=== PATIENT | male | born 1970 | race Caucasian/White ===

== ENCOUNTER 2020-08-08 05:14 | Emergency (ER) | payer OTHER, SELFPAY ==
[2020-08-08] VITALS (7 sets, daily range): BP systolic 147–174; BP diastolic 94–111; PULSE 69–102; RESP 18–24; TEMP 36.8–36.9; O2SAT 93–98; BMI 38.0
--- NOTE | 2020-08-08 05:15 | XR_ITS ---
WS: [id number] Portable AP upright chest, 08/08/2020 Clinical Data: covid Comparison: None. Findings: There are bilateral opacities in the mid portions of both lungs. The heart size is normal. No nodules, masses or effusions are seen. No pneumothorax is seen. The pulmonary vascularity is not i ncreased. XR/XR chest 1V portable [id number] Impression: Bilateral patchy opacities consistent with pneumonia.
--- NOTE | 2020-08-08 05:26 | W.ED.SOB ---
Documented by User: Kt Clement MD 08/08/20 05:43 HPI - SOB/Dyspnea General: Chief Complaint: Shortness of Breath/Dyspnea Stated Complaint: sob Time Seen by Provider: 08/08/20 05:26 Source: patient and EMS Mode of arrival: EMS Limitations: no limitations History of Present Illness: HPI Narrative: 50-year-old male came in by EMS for shortness of breath. He states he has been having cough fever for the last 10 days and did test positive for COVID-19 7 days ago. He states he been feeling well until overnight. He states his pulse ox at home was reading 78 at one time and EMS states when they arrived he was 8586% on room air and they placed him on 4 L. He is currently 94% on 4 L. He has had a cough and states he has difficulty getting deep breaths in. He has had overall body pain and low-grade fevers. Denies any worsening improving factors. Associated symptoms: Reports fever(s); Deny abdominal pain, chest pain, nausea or vomiting Review of Systems Const: Reports: fever(s) and body aches; Denies: chills or change in appetite Eyes: Denies: blurry vision or eye discomfort ENMT: Denies: throat pain or dental pain Card: Denies: chest pain Resp: Reports: dyspnea and non-productive cough GI: Denies: abdominal pain, nausea, vomiting or diarrhea : Denies: dysuria Musc: Denies: neck pain or back pain Skin/Breast: Denies: rash Neuro: Denies: headache(s) Psych: Denies: depression Raj/Lymph: Denies: easy bruising All/Imm: Denies: urticaria Physical Exam Const: COMMON NORMALS: no acute distress, patient oriented x3 and healthy appearing HENMT: COMMON NORMALS: normocephalic and atraumatic HEAD & SCALP: normocephalic and atraumatic Eye: COMMON NORMALS: Equal, round and reactive pupils present and EOMs intact bilaterally PUPIL: Yes Equal, round and reactive pupils present Neck/C-Spine: COMMON NORMALS: full ROM and supple Chest: COMMONS NORMALS: normal inspection of the chest and normal palpation of entire chest wall Resp: COMMON NORMALS: normal respiratory effort, No retractions, No use of accessory muscles and clear to auscultation bilaterally AUSCULTATION: clear to auscultation bilaterally Cardio: COMMON NORMALS: regular rate, regular rhythm and No murmurs present (Cardio) RATE: regular rate RHYTHM: regular rhythm GI: COMMON NORMALS: Normal to inspection, nondistended, normoactive bowel sounds present, Soft to palpation, non-tender and no masses PALPATION: Yes Soft to palpation Extremity: COMMON NORMALS: normal to inspection and full ROM Neuro: COMMON NORMALS: patient oriented x3, moves all extremities and no focal motor deficits Psych: COMMON NORMALS: mental status grossly normal, Normal thought process present and cooperative THOUGHT PROCESS: Normal thought process present Skin: COMMON NORMALS: no rashes or lesions noted and no wounds GENERAL SKIN EXAM: no rashes or lesions noted Course Vital Signs: Vital signs: Vital Signs Temperature 98.4 F 08/08/20 15:37 Pulse Rate 101 H 08/08/20 15:37 Respiratory Rate 18 08/08/20 15:37 Blood Pressure 155/101 08/08/20 15:37 Pulse Oximetry 96 08/08/20 15:37 MDM - SOB/Dyspnea Lab Data: Labs: Lab Results 08/08/20 08/08/20 08/08/20 Range/Units 05:25 05:40 05:40 WBC 26.3 H (4.0-10.0) 10^3/ uL RBC 5.63 H (4.1-5.3) 10^6/u L Hgb 16.6 (11.7-16.6) g/dL Hct 48.6 (42.0-52.0) % MCV 86.3 (80-94) fL MCH 29.5 (28.0-34.0) pg MCHC 34.2 (30.0-36.0) g/dL RDW 11.6 L (12.1-15.1) % Plt Count 312 (130-400) 10^3/c mm MPV 11.7 H (7.4-10.4) fL Lymph % (Auto) Not Reportable Garland % (Auto) Not Reportable Lymph # (Auto) Not Reportable [place] # (Auto) Not Reportable Total Counted 100 (0-100) Atypical Lymphs % 0.0 (0-5) % Absolute Neutrophi ls 23.9 H (1.4-6.5) 10^3/c mm Segmented Neutroph ils 80 % Abs Segm Neuts (Ma n) 21.0 H (1.6-7.1) 10/cmm Band Neutrophils 11.0 % Abs Band Neuts (Ma n) 2.9 H (0.0-1.2) 10^3/c mm Lymphocytes (Manua l) 4 % Monocytes (Manual) 2.0 % Absolute Monocytes 0.5 (0.1-0.6) 10^3/c mm Eosinophils (Manua l) 0 % Absolute Eosinophi ls 0.0 (0.0-0.7) 10^3/c mm Basophils (Manual) 0.0 % Absolute Basophils 0.0 (0.0-0.2) 10^3/c mm Metamyelocytes 2.0 % Myelocytes 1.0 % Platelet Estimate Normal (Normal) Fibrinogen 599 H (174-498) mg/dL D-Dimer <= 0.27 (0-0.59) ug/mIFE U Specimen Type Arterial Sample Site Radial, left ABG pH 7.46 H (7.35-7.45) ABG pCO2 31.1 L (35-45) mmHg ABG pO2 70.9 L (80.0-100.0) mmH g ABG HCO3 22.2 (22-26) mmol/L ABG Base Excess -0.5 (-2.0-2.0) mmol/ L Johnny Test Pos Hematocrit 52.1 H (42-52) % O2 Delivery Device Nc O2 Liters/Min 4.0 % [employer] Harkr Sodium (136-145) mmol/L Potassium (3.5-5.1) mmol/L Chloride (98-107) mmol/L Carbon Dioxide (22-29) mmol/L Anion Gap (5-19) BUN (6-20) mg/dL Creatinine (0.7-1.2) mg/dL GFR Calculation (90-130) mL/min Glucose (65-115) mg/dL Calculated Osmolal ity (285-295) mOsm/k g Lactic Acid (0.5-2.2) mmol/L Lactic Acid (Sepsi s) (0.5-2.2) mmol/L Calcium (8.5-10.5) mg/dL Ferritin (30-400) ng/mL Total Bilirubin (0.15-1.2) mg/dL AST (0-40) U/L ALT (0-41) U/L Alkaline Phosphata se (40-130) IU/L Lactate Dehydrogen ase (135-225) U/L C-Reactive Protein (0.0-4.9) mg/L Total Protein (6.6-8.7) g/dL Albumin (3.5-5.2) g/dL Globulin (1.3-4.6) g/dL 08/08/20 08/08/20 08/08/20 Range/Units 05:40 05:40 05:40 WBC (4.0-10.0) 10^3/ uL RBC (4.1-5.3) 10^6/u L Hgb (11.7-16.6) g/dL Hct (42.0-52.0) % MCV (80-94) fL MCH (28.0-34.0) pg MCHC (30.0-36.0) g/dL RDW (12.1-15.1) % Plt Count (130-400) 10^3/c mm MPV (7.4-10.4) fL Lymph % (Auto) Garland % (Auto) Lymph # (Auto) [place] # (Auto) Total Counted (0-100) Atypical Lymphs % (0-5) % Absolute Neutrophi ls (1.4-6.5) 10^3/c mm Segmented Neutroph ils % Abs Segm Neuts (Ma n) (1.6-7.1) 10/cmm Band Neutrophils % Abs Band Neuts (Ma n) (0.0-1.2) 10^3/c mm Lymphocytes (Manua l) % Monocytes (Manual) % Absolute Monocytes (0.1-0.6) 10^3/c mm Eosinophils (Manua l) % Absolute Eosinophi ls (0.0-0.7) 10^3/c mm Basophils (Manual) % Absolute Basophils (0.0-0.2) 10^3/c mm Metamyelocytes % Myelocytes % Platelet Estimate (Normal) Fibrinogen (174-498) mg/dL D-Dimer (0-0.59) ug/mIFE U Specimen Type Sample Site ABG pH (7.35-7.45) ABG pCO2 (35-45) mmHg ABG pO2 (80.0-100.0) mmH g ABG HCO3 (22-26) mmol/L ABG Base Excess (-2.0-2.0) mmol/ L Johnny Test Hematocrit (42-52) % O2 Delivery Device O2 Liters/Min % [employer] ID Sodium 132 L (136-145) mmol/L Potassium 4.1 (3.5-5.1) mmol/L Chloride 96 L (98-107) mmol/L Carbon Dioxide 23 (22-29) mmol/L Anion Gap 17.1 (5-19) BUN 16 (6-20) mg/dL Creatinine 0.6 L (0.7-1.2) mg/dL GFR Calculation 142.0 H (90-130) mL/min Glucose 292 H (65-115) mg/dL Calculated Osmolal ity 286 (285-295) mOsm/k g Lactic Acid 2.2 (0.5-2.2) mmol/L Lactic Acid (Sepsi s) (0.5-2.2) mmol/L Calcium 9.0 (8.5-10.5) mg/dL Ferritin 596 H (30-400) ng/mL Total Bilirubin 0.6 (0.15-1.2) mg/dL AST 39 (0-40) U/L ALT 58 H (0-41) U/L Alkaline Phosphata se 95 (40-130) IU/L Lactate Dehydrogen ase 333 H (135-225) U/L C-Reactive Protein 81.3 H (0.0-4.9) mg/L Total Protein 7.2 (6.6-8.7) g/dL Albumin 3.9 (3.5-5.2) g/dL Globulin 3.3 (1.3-4.6) g/dL 08/08/20 Range/Units 10:13 WBC (4.0-10.0) 10^3/ uL RBC (4.1-5.3) 10^6/u L Hgb (11.7-16.6) g/dL Hct (42.0-52.0) % MCV (80-94) fL MCH (28.0-34.0) pg MCHC (30.0-36.0) g/dL RDW (12.1-15.1) % Plt Count (130-400) 10^3/c mm MPV (7.4-10.4) fL Lymph % (Auto) Garland % (Auto) Lymph # (Auto) [place] # (Auto) Total Counted (0-100) Atypical Lymphs % (0-5) % Absolute Neutrophi ls (1.4-6.5) 10^3/c mm Segmented Neutroph ils % Abs Segm Neuts (Ma n) (1.6-7.1) 10/cmm Band Neutrophils % Abs Band Neuts (Ma n) (0.0-1.2) 10^3/c mm Lymphocytes (Manua l) % Monocytes (Manual) % Absolute Monocytes (0.1-0.6) 10^3/c mm Eosinophils (Manua l) % Absolute Eosinophi ls (0.0-0.7) 10^3/c mm Basophils (Manual) % Absolute Basophils (0.0-0.2) 10^3/c mm Metamyelocytes % Myelocytes % Platelet Estimate (Normal) Fibrinogen (174-498) mg/dL D-Dimer (0-0.59) ug/mIFE U Specimen Type Sample Site ABG pH (7.35-7.45) ABG pCO2 (35-45) mmHg ABG pO2 (80.0-100.0) mmH g ABG HCO3 (22-26) mmol/L ABG Base Excess (-2.0-2.0) mmol/ L Johnny Test Hematocrit (42-52) % O2 Delivery Device O2 Liters/Min % [employer] ID Sodium (136-145) mmol/L Potassium (3.5-5.1) mmol/L Chloride (98-107) mmol/L Carbon Dioxide (22-29) mmol/L Anion Gap (5-19) BUN (6-20) mg/dL Creatinine (0.7-1.2) mg/dL GFR Calculation (90-130) mL/min Glucose (65-115) mg/dL Calculated Osmolal ity (285-295) mOsm/k g Lactic Acid (0.5-2.2) mmol/L Lactic Acid (Sepsi s) 1.4 (0.5-2.2) mmol/L Calcium (8.5-10.5) mg/dL Ferritin (30-400) ng/mL Total Bilirubin (0.15-1.2) mg/dL AST (0-40) U/L ALT (0-41) U/L Alkaline Phosphata se (40-130) IU/L Lactate Dehydrogen ase (135-225) U/L C-Reactive Protein (0.0-4.9) mg/L Total Protein (6.6-8.7) g/dL Albumin (3.5-5.2) g/dL Globulin (1.3-4.6) g/dL EKG Data^: EKG 1: Attestation: I personally reviewed and interpreted this EKG as follows: EKG Interpretation Date: 08/08/20 EKG interpretation time: 05:12 Interpretation: sinus tach hr [address] or t wave abnormalities qrs 82 qtc 383 Discharge Plan Discharge Referrals: Temo Rivera MD [Primary Care Provider] - Discharge Date/Time: 08/08/20 15:42 Sign Out Sign Out Data: Patient Sign Out occurred on 08/08/20 at 06:03. Patient's care was discussed, and care was transferred from to Reg Gaston DO. Coding Level of Care Code ED [employer] for [employer] Fwd Exam Comprehensive Documented by User: Reg Gaston DO 08/09/20 06:27 HPI - SOB/Dyspnea General: Chief Complaint: Shortness of Breath/Dyspnea Stated Complaint: sob Time Seen by Provider: 08/08/20 05:26 Course Vital Signs: Vital signs: Vital Signs Temperature 98.4 F 08/08/20 15:37 Pulse Rate 101 H 08/08/20 15:37 Respiratory Rate 18 08/08/20 15:37 Blood Pressure 155/101 08/08/20 15:37 Pulse Oximetry 96 08/08/20 15:37 MDM - SOB/Dyspnea MDM Narrative: Medical decision making narrative: This patient he is doing well as long as the essentially completely resting in bed. Is requiring 6 L/min by nasal cannula. He is known Covid positive. His white count is significantly elevated and he does look like he has a small infiltrate at the lower portion of the left upper lobe. He started on Levaquin. He is also been given remdesivir and steroids. We are to go ahead and transfer him as there are no appropriate beds available in our facility. Discussed with the patient and he expressed understanding patient remained stable until transferred by air ambulance to [facility]. Lab Data: Labs: Lab Results 08/08/20 08/08/20 08/08/20 Range/Units 05:25 05:40 05:40 WBC 26.3 H (4.0-10.0) 10^3/ uL RBC 5.63 H (4.1-5.3) 10^6/u L Hgb 16.6 (11.7-16.6) g/dL Hct 48.6 (42.0-52.0) % MCV 86.3 (80-94) fL MCH 29.5 (28.0-34.0) pg MCHC 34.2 (30.0-36.0) g/dL RDW 11.6 L (12.1-15.1) % Plt Count 312 (130-400) 10^3/c mm MPV 11.7 H (7.4-10.4) fL Lymph % (Auto) Not Reportable Garland % (Auto) Not Reportable Lymph # (Auto) Not Reportable Garland # (Auto) Not Reportable Total Counted 100 (0-100) Atypical Lymphs % 0.0 (0-5) % Absolute Neutrophi ls 23.9 H (1.4-6.5) 10^3/c mm Segmented Neutroph ils 80 % Abs Segm Neuts (Ma n) 21.0 H (1.6-7.1) 10/cmm Band Neutrophils 11.0 % Abs Band Neuts (Ma n) 2.9 H (0.0-1.2) 10^3/c mm Lymphocytes (Manua l) 4 % Monocytes (Manual) 2.0 % Absolute Monocytes 0.5 (0.1-0.6) 10^3/c mm Eosinophils (Manua l) 0 % Absolute Eosinophi ls 0.0 (0.0-0.7) 10^3/c mm Basophils (Manual) 0.0 % Absolute Basophils 0.0 (0.0-0.2) 10^3/c mm Metamyelocytes 2.0 % Myelocytes 1.0 % Platelet Estimate Normal (Normal) Fibrinogen 599 H (174-498) mg/dL D-Dimer <= 0.27 (0-0.59) ug/mIFE U Specimen Type Arterial Sample Site Radial, left ABG pH 7.46 H (7.35-7.45) ABG pCO2 31.1 L (35-45) mmHg ABG pO2 70.9 L (80.0-100.0) mmH g ABG HCO3 22.2 (22-26) mmol/L ABG Base Excess -0.5 (-2.0-2.0) mmol/ L Johnny Test Pos Hematocrit 52.1 H (42-52) % O2 Delivery Device Nc O2 Liters/Min 4.0 % [employer]ark[employer] Sodium (136-145) mmol/L Potassium (3.5-5.1) mmol/L Chloride (98-107) mmol/L Carbon Dioxide (22-29) mmol/L Anion Gap (5-19) BUN (6-20) mg/dL Creatinine (0.7-1.2) mg/dL GFR Calculation (90-130) mL/min Glucose (65-115) mg/dL Calculated Osmolal ity (285-295) mOsm/k g Lactic Acid (0.5-2.2) mmol/L Lactic Acid (Sepsi s) (0.5-2.2) mmol/L Calcium (8.5-10.5) mg/dL Ferritin (30-400) ng/mL Total Bilirubin (0.15-1.2) mg/dL AST (0-40) U/L ALT (0-41) U/L Alkaline Phosphata se (40-130) IU/L Lactate Dehydrogen ase (135-225) U/L C-Reactive Protein (0.0-4.9) mg/L Total Protein (6.6-8.7) g/dL Albumin (3.5-5.2) g/dL Globulin (1.3-4.6) g/dL 08/08/20 08/08/20 08/08/20 Range/Units 05:40 05:40 05:40 WBC (4.0-10.0) 10^3/ uL RBC (4.1-5.3) 10^6/u L Hgb (11.7-16.6) g/dL Hct (42.0-52.0) % MCV (80-94) fL MCH (28.0-34.0) pg MCHC (30.0-36.0) g/dL RDW (12.1-15.1) % Plt Count (130-400) 10^3/c mm MPV (7.4-10.4) fL Lymph % (Auto) Garland % (Auto) Lymph # (Auto) Garland # (Auto) Total Counted (0-100) Atypical Lymphs % (0-5) % Absolute Neutrophi ls (1.4-6.5) 10^3/c mm Segmented Neutroph ils % Abs Segm Neuts (Ma n) (1.6-7.1) 10/cmm Band Neutrophils % Abs Band Neuts (Ma n) (0.0-1.2) 10^3/c mm Lymphocytes (Manua l) % Monocytes (Manual) % Absolute Monocytes (0.1-0.6) 10^3/c mm Eosinophils (Manua l) % Absolute Eosinophi ls (0.0-0.7) 10^3/c mm Basophils (Manual) % Absolute Basophils (0.0-0.2) 10^3/c mm Metamyelocytes % Myelocytes % Platelet Estimate (Normal) Fibrinogen (174-498) mg/dL D-Dimer (0-0.59) ug/mIFE U Specimen Type Sample Site ABG pH (7.35-7.45) ABG pCO2 (35-45) mmHg ABG pO2 (80.0-100.0) mmH g ABG HCO3 (22-26) mmol/L ABG Base Excess (-2.0-2.0) mmol/ L Johnny Test Hematocrit (42-52) % O2 Delivery Device O2 Liters/Min % [employer] ID Sodium 132 L (136-145) mmol/L Potassium 4.1 (3.5-5.1) mmol/L Chloride 96 L (98-107) mmol/L Carbon Dioxide 23 (22-29) mmol/L Anion Gap 17.1 (5-19) BUN 16 (6-20) mg/dL Creatinine 0.6 L (0.7-1.2) mg/dL GFR Calculation 142.0 H (90-130) mL/min Glucose 292 H (65-115) mg/dL Calculated Osmolal ity 286 (285-295) mOsm/k g Lactic Acid 2.2 (0.5-2.2) mmol/L Lactic Acid (Sepsi s) (0.5-2.2) mmol/L Calcium 9.0 (8.5-10.5) mg/dL Ferritin 596 H (30-400) ng/mL Total Bilirubin 0.6 (0.15-1.2) mg/dL AST 39 (0-40) U/L ALT 58 H (0-41) U/L Alkaline Phosphata se 95 (40-130) IU/L Lactate Dehydrogen ase 333 H (135-225) U/L C-Reactive Protein 81.3 H (0.0-4.9) mg/L Total Protein 7.2 (6.6-8.7) g/dL Albumin 3.9 (3.5-5.2) g/dL Globulin 3.3 (1.3-4.6) g/dL 10/15/20 Range/Units 10:13 WBC (4.0-10.0) 10^3/ uL RBC (4.1-5.3) 10^6/u L Hgb (11.7-16.6) g/dL Hct (42.0-52.0) % MCV (80-94) fL MCH (28.0-34.0) pg MCHC (30.0-36.0) g/dL RDW (12.1-15.1) % Plt Count (130-400) 10^3/c mm MPV (7.4-10.4) fL Lymph % (Auto) Garland % (Auto) Lymph # (Auto) Garland # (Auto) Total Counted (0-100) Atypical Lymphs % (0-5) % Absolute Neutrophi ls (1.4-6.5) 10^3/c mm Segmented Neutroph ils % Abs Segm Neuts (Ma n) (1.6-7.1) 10/cmm Band Neutrophils % Abs Band Neuts (Ma n) (0.0-1.2) 10^3/c mm Lymphocytes (Manua l) % Monocytes (Manual) % Absolute Monocytes (0.1-0.6) 10^3/c mm Eosinophils (Manua l) % Absolute Eosinophi ls (0.0-0.7) 10^3/c mm Basophils (Manual) % Absolute Basophils (0.0-0.2) 10^3/c mm Metamyelocytes % Myelocytes % Platelet Estimate (Normal) Fibrinogen (174-498) mg/dL D-Dimer (0-0.59) ug/mIFE U Specimen Type Sample Site ABG pH (7.35-7.45) ABG pCO2 (35-45) mmHg ABG pO2 (80.0-100.0) mmH g ABG HCO3 (22-26) mmol/L ABG Base Excess (-2.0-2.0) mmol/ L Johnny Test Hematocrit (42-52) % O2 Delivery Device O2 Liters/Min % [employer] ID Sodium (136-145) mmol/L Potassium (3.5-5.1) mmol/L Chloride (98-107) mmol/L Carbon Dioxide (22-29) mmol/L Anion Gap (5-19) BUN (6-20) mg/dL Creatinine (0.7-1.2) mg/dL GFR Calculation (90-130) mL/min Glucose (65-115) mg/dL Calculated Osmolal ity (285-295) mOsm/k g Lactic Acid (0.5-2.2) mmol/L Lactic Acid (Sepsi s) 1.4 (0.5-2.2) mmol/L Calcium (8.5-10.5) mg/dL Ferritin (30-400) ng/mL Total Bilirubin (0.15-1.2) mg/dL AST (0-40) U/L ALT (0-41) U/L Alkaline Phosphata se (40-130) IU/L Lactate Dehydrogen ase (135-225) U/L C-Reactive Protein (0.0-4.9) mg/L Total Protein (6.6-8.7) g/dL Albumin (3.5-5.2) g/dL Globulin (1.3-4.6) g/dL Discharge Plan Discharge Referrals: Temo Rivera MD [Primary Care Provider] - Discharge Date/Time: 08/08/20 15:42 Sign Out Sign Out Data: Patient Sign Out occurred on 08/08/20 at 06:03. Patient's care was discussed, and care was transferred from to Reg Gaston DO. Coding Level of Care Code ED [employer]ou[employer] for [employer] Fwd Exam Comprehensive
[2020-08-08 05:36] LABS: ABG PCO2 31.1 mmHg (35-45); ABG PH Result 7.46 (7.35-7.45); Arterial Blood Gas Hematocrit 52.1 % (42-52); Base Excess ABG -0.5 mmol/L (-2.0-2.0); Blood Gas Allen Test Pos; Blood Gas Operator Identificat HARKR; Blood Gas Sample Site Radial, left; Blood Gas Sample Type Arterial; HCO3 ABG 22.2 mmol/L (22-26); Oxygen Device NC; PO2 ABG 70.9 mmHg (80.0-100.0)
[2020-08-08 05:50] LABS: Hematocrit 48.6 % (42.0-52.0); Hemoglobin 16.6 g/dL (11.7-16.6); Mean Corpuscular HGB Conc 34.2 g/dL (30.0-36.0); Mean Corpuscular Hemoglobin 29.5 pg (28.0-34.0); Mean Corpuscular Volume 86.3 fL (80-94); Mean Platelet Volume 11.7 fL (7.4-10.4); Platelet Count 312 10^3/cmm (130-400); Red Blood Count 5.63 10^6/uL (4.1-5.3); Red Cell Distribution Width 11.6 % (12.1-15.1); White Blood Count 26.3 10^3/uL (4.0-10.0)
[2020-08-08] MEDS: dexamethasone 10 mg/mL INJ IVP (05:50)
[2020-08-08 06:01] LABS: Fibrinogen 599 mg/dL (174-498)
[2020-08-08 06:04] LABS: D Dimer <= 0.27 ug/mIFEU (0-0.59)
[2020-08-08 06:07] LABS: Lactic Sepsis W/Reflex 2.2 mmol/L (0.5-2.2)
[2020-08-08 06:08] LABS: Alanine Aminotransferase 58 U/L (0-41); Albumin Level 3.9 g/dL (3.5-5.2); Alkaline Phosphatase 95 IU/L (40-130); Aspartate Amino Transferase 39 U/L (0-40); Blood Urea Nitrogen 16 mg/dL (6-20); C Reactive Protein 81.3 mg/L (0.0-4.9); Carbon Dioxide 23 mmol/L (22-29); Chloride 96 mmol/L (98-107); Ferritin 596 ng/mL (30-400); Globulin 3.3 g/dL (1.3-4.6); Glucose 292 mg/dL (65-115); Osmolality Calculated 286 mOsm/kg (285-295); Sodium 132 mmol/L (136-145); Total Bilirubin 0.6 mg/dL (0.15-1.2); Total Protein 7.2 g/dL (6.6-8.7)
[2020-08-08 06:17] LABS: Anion Gap 17.1 (5-19); Potassium 4.1 mmol/L (3.5-5.1); Slide Review Slide Review Perform
[2020-08-08 06:19] LABS: Band Neutrophils Absolute 2.9 10^3/cmm (0.0-1.2); Lymphocytes 4 %; Monocytes Absolute 0.5 10^3/cmm (0.1-0.6); Segmented Neutrophils 80 %; Total Cells Counted 100 (0-100)
[2020-08-08 06:20] LABS: Absolute Neutrophil 23.9 10^3/cmm (1.4-6.5); Platelet Estimate Normal (Normal)
[2020-08-08 06:22] LABS: Eosinophils 0 %
--- NOTE | 2020-08-08 07:13 | PC.NURSE ---
Does not have a cough to produce sputum
[2020-08-08 07:35] LABS: Reflex Lactate Order REFLEX LACTIC ORDERD
[2020-08-08 07:47] LABS: Lactate Dehydrogenase 333 U/L (135-225)
[2020-08-08 10:55] LABS: Lactic Acid level (Lactate) 1.4 mmol/L (0.5-2.2)
[2020-08-08] MEDS: levofloxacin-dextrose 5 % 750 MG/150 ML PREMIX 100 MG IV (14:37)
== END 2020-08-08 15:42 ==
PROVIDERS: Emergency Medicine; Emergency Provider Family Medicine; PCP Family Medicine
DX: R06.02 Shortness of breath (principal)
CPT/HCPCS: 12345; 36415; 36600; 71045; 80053; 82728; 82803; 83605; 83615; 85007; 85025; 85378; 85384; 86140; 96365; 96366; 96367; 96375; 99284; 99285; J1100; J1956